=== PATIENT | female | born 1935 | race Caucasian/White ===

== ENCOUNTER 2017-02-24 10:54 | Emergency (ER) | payer OTHER, MEDICARE ==
[~2017-02-24] VITALS: Ht 160 cm; Wt 136.0 kg
[~2017-02-24 10:54] MED LIST: ACTOS30 MG PO; AMARYL4 MG PO; AMLODIPINE BESY10 MG PO; ASPIRIN81 M2 PO; Ascorbic Acid,Ester- PO; Aspirin E.C. PO; CEFDINIR300 MG PO; Colace PO; DEXILANT60 MG PO; FLAGYL500 MG PO; FLONASE16 G1 BOTH NARES; FLOVENT DISKUS1 DIS2 IH; FOLIC ACID1 MG PO; FOLVITE1 M1 PO; Feosol PO; Glucotrol PO; K-Dur PO; LANTUS (UNITS)1 UNIT SC; LANTUS 10100 UNITS/ SC; LANTUS 3 M100 UNITS/ SC; LANTUS 3 M100 UNITS1 SC; LASIX20 MG PO; LIPITOR20 MG PO; LIPITOR40 MG PO; LISINOPRIL5 MG PO; LOPRESSOR25 MG PO; Lasix PO; Lipitor PO; METRONIDAZOLE500 MG PO; MIRALAX17 GM PO; MIRALAX255 GM PO; MITRAZOL POWDER30 GM TP; MONTELUKAST SOD10 MG PO; NORVASC10 MG PO; NOVOLOG PE100 UNITS/ SC; OMEPRAZOLE40 M1 PO; PERCOCET 5/31 TABLET PO; PREDNISONE20 MG PO; PRILOSEC20 MG PO; Protonix PO; SENOKOT S,PE1 TABLET PO; SINGULAIR10 MG PO; Singulair PO; THERAGRAN1 TABLET PO; TYLENOL EXTRA500 MG PO; Tylenol Regular Stre PO; VALIUM5 MG PO; VITAMIN B122500 MCG PO; Vitamin B-12 IM; ZESTORETIC,P1 TABLE1 PO; ZOFRAN ODT4 MG PO; Zestril,Prinivil PO; oxyCODONE PO
[2017-02-24 12:01] LABS: CHLORIDE 102 mEq/L (99-109); SODIUM 138 mEq/L (136-147)
[2017-02-24 12:04] LABS: GLUCOSE 123 mg/dL (70-99)
[2017-02-24 12:05] LABS: ANION GAP 14 MEQ/L (2-14); TOTAL BILIRUBIN 0.5 mg/dL (0.0-1.0)
[2017-02-24 12:07] LABS: ALKALINE PHOSPHATASE 143 IU/L (3-129); GFR ESTIMATE (CALCULATED) 46 mL/min/
[2017-02-24 12:08] LABS: UREA NITROGEN (BUN) 21 mg/dL (9-23)
[2017-02-24 12:09] LABS: DIRECT BILIRUBIN 0.2 mg/dL (0.0-0.3)
[2017-02-24 12:11] LABS: LIPASE 26 U/L (1.0-51.0)
[2017-02-24 12:47] LABS: MCH 29.1 PG (29.0-34.0); MCHC 31.9 G/DL (30.0-36.0); MCV 91.5 FL (83-99); MEAN PLAT.VOLUME 11.1 uM^3 (9.5-12.4); PLATELET COUNT 267 K/uL (156-360); RBC DIS.WIDTH-CV 13.6 % (11.8-14.6); RBC DIS.WIDTH-SD 46.2 % (39-53); WHITE BLOOD COUNT 11.5 K/uL (4.1-10.2)
[2017-02-24 13:24] LABS: ADD MIUA? YES; BILIRUBIN NEGATIVE; BLOOD NEGATIVE; COLOR YELLOW ((YELLOW)); GLUCOSE (STRIP) NEGATIVE; KETONES NEGATIVE; LEUKOCYTES NEGATIVE; NITRITE NEGATIVE; PROTEIN (STRIP) NEGATIVE; SPECIFIC GRAVITY 1.009 (1.000-1.030); UROBILINOGEN 0.2 MG/DL (0.2-1.0)
[2017-02-24 13:31] LABS: BACTERIA RARE /HPF; CALCIUM OXALATE CRYSTALS 1+ /HPF; EPITHELIAL CELLS 1+ /HPF; MUCUS TRACE /LPF; RED BLOOD CELLS 0-5 /HPF (0-5); UCUL ADDED? NO
[2017-02-24] MEDS ORDERED: KEFLEX500 MG PO (15:17)
[2017-02-24 15:30] VITALS: BP 170/68
== END 2017-02-24 15:50 | disposition home or self-care (01) ==
LOC: EME 10:54
PROVIDERS: Emergency Medicine
DX: R10.13 Epigastric pain (principal); R11.2 Nausea with vomiting, unspecified; R30.0 Dysuria; E11.9 Type 2 diabetes mellitus without complications; E78.5 Hyperlipidemia, unspecified; I10 Essential (primary) hypertension; Z87.442 Personal history of urinary calculi; K21.9 Gastro-esophageal reflux disease without esophagitis
CPT/HCPCS: 74177; 80048; 80076; 81003; 83605; 83690; 85027; 99281; 99285; J2405; J7030

== ENCOUNTER 2017-05-21 09:26 | Inpatient (IN) | payer OTHER, MEDICARE ==
[~2017-05-21] VITALS: Ht 161.3 cm; Wt 141.1 kg
[~2017-05-21 09:26] MED LIST changes: +CYANOCOBALAM1000 MCG PO; -DEXILANT60 MG PO; +KEFLEX500 MG PO; -LANTUS 10100 UNITS/ SC; -VITAMIN B122500 MCG PO
[2017-05-21 10:08] LABS: POINT-OF-CARE METER ID UU13113702
[2017-05-21 10:13] LABS: HEMATOCRIT 43.2 % (36.0-46.0); MCH 29.1 PG (29.0-34.0); MCHC 32.2 G/DL (30.0-36.0); MCV 90.6 FL (83-99); MEAN PLAT.VOLUME 11.6 uM^3 (9.5-12.4); PLATELET COUNT 224 K/uL (156-360); RBC DIS.WIDTH-CV 13.9 % (11.8-14.6); RBC DIS.WIDTH-SD 46.5 % (39-53); RED BLOOD COUNT 4.77 M/uL (3.80-5.20); WHITE BLOOD COUNT 7.8 K/uL (4.1-10.2)
[2017-05-21 10:22] LABS: CHLORIDE 101 mEq/L (99-109); POTASSIUM 4.3 mEq/L (3.7-5.4); SODIUM 141 mEq/L (136-147)
[2017-05-21 10:23] LABS: GLUCOSE 99 mg/dL (70-99)
[2017-05-21 10:25] LABS: ANION GAP 11 MEQ/L (2-14)
[2017-05-21 10:27] LABS: GFR ESTIMATE (CALCULATED) 51 mL/min/
[2017-05-21 10:28] LABS: TOTAL BILIRUBIN 0.6 mg/dL (0.0-1.0); UREA NITROGEN (BUN) 22 mg/dL (9-23)
[2017-05-21 10:29] LABS: ALKALINE PHOSPHATASE 154 IU/L (3-129)
[2017-05-21 10:32] LABS: DIRECT BILIRUBIN 0.2 mg/dL (0.0-0.3)
[2017-05-21 10:33] LABS: TROP-I INTERPRETATION NEGATIVE; TROPONIN-I < 0.01 ng/mL (0.0-0.30)
[2017-05-21] MEDS ORDERED: POTASSIUM CHLO20 ME1 PO (12:50)
[2017-05-21] MEDS ORDERED: MULTI VITAMIN1 EACH PO (12:52)
[2017-05-21 13:56] VITALS: BP 152/69
[2017-05-21 13:57] LABS: TROP-I INTERPRETATION NEGATIVE; TROPONIN-I < 0.01 ng/mL (0.0-0.30)
[2017-05-21 19:25] VITALS: BP 133/85
[2017-05-21 20:25] LABS: TROP-I INTERPRETATION NEGATIVE; TROPONIN-I 0.01 ng/mL (0.0-0.30)
[2017-05-22] VITALS (7 sets, daily range): BP systolic 134–169; BP diastolic 60–76
[2017-05-22 06:10] LABS: ALKALINE PHOSPHATASE 136 IU/L (3-129); ANION GAP 8 MEQ/L (2-14); CHLORIDE 104 MEQ/L (99-109); GFR ESTIMATE (CALCULATED) 51 mL/min/; POTASSIUM 4.3 MEQ/L (3.7-5.4); SAMPLE HEMOLYSIS CHECK 0; SAMPLE ICTERIC CHECK 0; SAMPLE LIPEMIA CHECK 0; SODIUM 141 MEQ/L (136-147); TOTAL BILIRUBIN 0.5 MG/DL (0.0-1.0); UREA NITROGEN (BUN) 25 mg/dL (9-23)
[2017-05-22 06:12] LABS: HEMATOCRIT 41.8 % (36.0-46.0); MCH 29.8 PG (29.0-34.0); MCHC 32.8 G/DL (30.0-36.0); MCV 91.1 FL (83-99); MEAN PLAT.VOLUME 12.3 uM^3 (9.5-12.4); PLATELET COUNT 235 K/uL (156-360); RBC DIS.WIDTH-CV 14.2 % (11.8-14.6); RBC DIS.WIDTH-SD 47.1 % (39-53); RED BLOOD COUNT 4.59 M/uL (3.80-5.20); WHITE BLOOD COUNT 8.8 K/uL (4.1-10.2)
[2017-05-22 06:13] LABS: TROP-I INTERPRETATION NEGATIVE; TROPONIN-I 0.02 ng/mL (0.0-0.30)
[2017-05-22 06:18] LABS: GLUCOSE 59 mg/dL (70-99)
[2017-05-22 08:13] LABS: POINT-OF-CARE METER ID UU14162513
[2017-05-22 08:52] LABS: POINT-OF-CARE METER ID UU14162513
[2017-05-22 09:00] LABS: BASE EXCESS 5.3 mEq/L (-3 to +3); BICARBONATE 31.1 mEq/L (22-26); CARBOXY HGB 2.1 % (0-5); METHEMOGLOBIN 1.5 % (0-1.5); PO2 59 mm Hg (80-100); pH 7.41 (7.35-7.45)
[2017-05-22 09:09] LABS: COMMENTS - BLOOD GASES AC+; FI02 21 %; PCO2 49 mm Hg (35-45); SITE RR
[2017-05-22 09:10] LABS: DEVICE RA
[2017-05-22 12:02] LABS: POINT-OF-CARE METER ID UU14162513
[2017-05-23 04:00] VITALS: BP 164/81
[2017-05-23 08:05] LABS: POINT-OF-CARE METER ID UU14174225
[2017-05-23 08:59] VITALS: BP 138/55
[2017-05-23 09:45] LABS: POINT-OF-CARE METER ID UU13113717
[2017-05-23 11:37] LABS: POINT-OF-CARE METER ID UU14174225
[2017-05-23 12:06] VITALS: BP 146/66
[2017-05-23 16:48] LABS: POINT-OF-CARE METER ID UU14174225
[2017-05-23 16:53] VITALS: BP 141/59
[2017-05-23 19:51] VITALS: BP 119/57
[2017-05-23 20:58] LABS: POINT-OF-CARE METER ID UU13113717
[2017-05-23 21:32] LABS: POINT-OF-CARE METER ID UU13113717
[2017-05-24] VITALS (7 sets, daily range): BP systolic 126–153; BP diastolic 58–71
[2017-05-24 07:46] LABS: POINT-OF-CARE METER ID UU14188625
[2017-05-24 09:19] LABS: POINT-OF-CARE METER ID UU14188625
[2017-05-24 12:01] LABS: POINT-OF-CARE METER ID UU14188625
[2017-05-24 21:35] LABS: POINT-OF-CARE METER ID UU14174225
[2017-05-25 05:52] LABS: BASOPHIL COUNT 0.1 K/uL (0-0.1); EOSINOPHIL (%) 5.8 % (0-5); EOSINOPHIL COUNT 0.4 K/uL (0-0.3); HEMATOCRIT 41.4 % (36.0-46.0); IMMATURE GRANULOCYTE (%) 0.3 % (0.0-0.7); INSTRUMENT ABS NEUTROPHIL CT 4.1 K/uL; LYMPHOCYTE COUNT 1.5 K/uL (1.0-2.8); MCH 29.1 PG (29.0-34.0); MCHC 31.6 G/DL (30.0-36.0); MEAN PLAT.VOLUME 11.8 uM^3 (9.5-12.4); MONOCYTE (%) 13.4 % (3-12); NEUTROPHIL (%) 58.2 % (45-76); NEUTROPHIL COUNT 4.1 K/uL (1.8-6.4); PLATELET COUNT 217 K/uL (156-360); RBC DIS.WIDTH-CV 14.3 % (11.8-14.6); RBC DIS.WIDTH-SD 47.8 % (39-53); WHITE BLOOD COUNT 7.1 K/uL (4.1-10.2)
[2017-05-25 06:40] LABS: ANION GAP 8 MEQ/L (2-14); CHLORIDE 100 MEQ/L (99-109); GFR ESTIMATE (CALCULATED) 38 mL/min/; GLUCOSE 114 mg/dL (70-99); POTASSIUM 4.4 MEQ/L (3.7-5.4); SAMPLE HEMOLYSIS CHECK 0; SAMPLE ICTERIC CHECK 0; SAMPLE LIPEMIA CHECK 0; SODIUM 138 MEQ/L (136-147); UREA NITROGEN (BUN) 33 mg/dL (9-23)
[2017-05-25 07:16] LABS: POINT-OF-CARE METER ID UU13113717
[2017-05-25 07:41] VITALS: BP 139/65
[2017-05-25 15:24] VITALS: BP 108/53
[2017-05-25 22:34] VITALS: BP 133/55
[2017-05-25 23:55] VITALS: BP 129/60
[2017-05-26 07:25] VITALS: BP 133/60
[2017-05-26 07:35] VITALS: BP 170/113
[2017-05-26 08:07] LABS: ANION GAP 9 MEQ/L (2-14); CHLORIDE 101 MEQ/L (99-109); GFR ESTIMATE (CALCULATED) 42 mL/min/; GLUCOSE 132 mg/dL (70-99); POTASSIUM 4.7 MEQ/L (3.7-5.4); SAMPLE HEMOLYSIS CHECK 0; SAMPLE ICTERIC CHECK 0; SAMPLE LIPEMIA CHECK 0; SODIUM 139 MEQ/L (136-147); UREA NITROGEN (BUN) 35 mg/dL (9-23)
[2017-05-26] MEDS ORDERED: LANTUS 3 M100 UNITS1 SC (09:22)
[2017-05-26] MEDS ORDERED: ADVAIR HFA120 INHALA IH (09:27)
[2017-05-26 11:07] VITALS: BP 149/64
[2017-05-26 11:24] LABS: POINT-OF-CARE METER ID UU14174225
[2017-05-26 15:10] VITALS: BP 145/65
[2017-05-26 16:56] LABS: POINT-OF-CARE METER ID UU14174225
== END 2017-05-26 18:55 | disposition home health service (06) | DRG 206 ==
LOC: EME 09:26 → EDOF 13:00 → ENRESERV 13:02 → 5WEST 13:41 → 5SOUTH 05-22 12:07 → 5WEST 05-22 12:07 → ENRESERV 05-22 12:19 → 5SOUTH 05-22 15:45
PROVIDERS: Emergency Medicine; Internal Medicine; Internal Medicine Cardiovascular Disease; Internal Medicine Pulmonary Disease; Nurse Practitioner Adult Health; Physician Assistant Medical; Student in an Organized Health Care Education/Training Program
DX: E66.2 Morbid (severe) obesity with alveolar hypoventilation (principal); J20.9 Acute bronchitis, unspecified; R09.02 Hypoxemia; I27.2 Other secondary pulmonary hypertension; B35.4 Tinea corporis; E11.22 Type 2 diabetes mellitus with diabetic chronic kidney disease; I12.9 Hypertensive chronic kidney disease with stage 1 through stage 4 chronic kidney disease, or unspecified chronic kidney disease; N18.3 Chronic kidney disease, stage 3 (moderate); E78.00 Pure hypercholesterolemia, unspecified; E78.5 Hyperlipidemia, unspecified; I45.10 Unspecified right bundle-branch block; J45.909 Unspecified asthma, uncomplicated; K21.9 Gastro-esophageal reflux disease without esophagitis; G89.29 Other chronic pain; M51.36 Other intervertebral disc degeneration, lumbar region; M48.06 Spinal stenosis, lumbar region; Z96.652 Presence of left artificial knee joint; Z79.4 Long term (current) use of insulin; Z95.2 Presence of prosthetic heart valve; Z79.82 Long term (current) use of aspirin; Z68.43 Body mass index [BMI] 50.0-59.9, adult; Z90.49 Acquired absence of other specified parts of digestive tract
CPT/HCPCS: 36600; 71020; 71275; 76705; 78582; 80048; 80053; 80076; 82803; 82948; 84484; 85025; 85027; 85379; 93005; 93306; 94640; 94640 76; 94799; 97530 GP; 99202; 99281; 99285; A9540; A9567; G0378; J0360; J1644; J1650; J1815; J7030

== ENCOUNTER 2017-10-12 20:52 | Emergency (ER) | payer OTHER, MEDICARE ==
[~2017-10-12] VITALS: Ht 157.5 cm; Wt 98.2 kg
[~2017-10-12 20:52] MED LIST changes: +ADVAIR HFA120 INHALA IH; +MULTI VITAMIN1 EACH PO; +POTASSIUM CHLO20 ME1 PO
[2017-10-12 21:55] LABS: HEMATOCRIT 44.3 % (36.0-46.0); MCH 29.9 PG (29.0-34.0); MCV 90.6 FL (83-99); MEAN PLAT.VOLUME 11.8 uM^3 (9.5-12.4); PLATELET COUNT 236 K/uL (156-360); RBC DIS.WIDTH-CV 13.3 % (11.8-14.6); RBC DIS.WIDTH-SD 44.7 % (39-53); RED BLOOD COUNT 4.89 M/uL (3.80-5.20); WHITE BLOOD COUNT 7.2 K/uL (4.1-10.2)
[2017-10-12 22:03] LABS: CHLORIDE 99 mEq/L (99-109); POTASSIUM 4.4 mEq/L (3.7-5.4); SODIUM 136 mEq/L (136-147)
[2017-10-12 22:05] LABS: GLUCOSE 294 mg/dL (70-99)
[2017-10-12 22:06] LABS: ANION GAP 12 MEQ/L (2-14)
[2017-10-12 22:07] LABS: TOTAL BILIRUBIN 0.5 mg/dL (0.0-1.0)
[2017-10-12 22:09] LABS: ALKALINE PHOSPHATASE 139 IU/L (3-129); GFR ESTIMATE (CALCULATED) 42 mL/min/
[2017-10-12 22:10] LABS: UREA NITROGEN (BUN) 30 mg/dL (9-23)
[2017-10-12 23:22] LABS: ADD MIUA? YES; BILIRUBIN NEGATIVE; BLOOD NEGATIVE; COLOR YELLOW ((YELLOW)); GLUCOSE (STRIP) >=500; KETONES NEGATIVE; LEUKOCYTES NEGATIVE; NITRITE NEGATIVE; PROTEIN (STRIP) 100; SPECIFIC GRAVITY 1.042 (1.000-1.030)
[2017-10-12 23:27] LABS: BACTERIA NONE SEEN /HPF; EPITHELIAL CELLS 1+ /HPF; HYALINE CASTS 0-5 /LPF; MUCUS TRACE /LPF; RED BLOOD CELLS 0-5 /HPF (0-5); UCUL ADDED? NO; WHITE BLOOD CELLS 0-5 /HPF (0-5)
[2017-10-13 01:10] VITALS: BP 137/45
== END 2017-10-13 01:11 | disposition home or self-care (01) ==
LOC: EME → EDBD 20:52 → EME 10-13 01:11
DX: R10.31 Right lower quadrant pain (principal); E11.9 Type 2 diabetes mellitus without complications; I10 Essential (primary) hypertension; E78.5 Hyperlipidemia, unspecified; K21.9 Gastro-esophageal reflux disease without esophagitis; I25.10 Atherosclerotic heart disease of native coronary artery without angina pectoris; Z95.2 Presence of prosthetic heart valve; Z87.442 Personal history of urinary calculi; Z79.4 Long term (current) use of insulin; Z88.5 Allergy status to narcotic agent; Z88.8 Allergy status to other drugs, medicaments and biological substances
CPT/HCPCS: 74177; 80053; 81003; 85027; 99281; 99285; J3010; J7030

== ENCOUNTER 2017-10-24 15:32 | Inpatient (IN) | payer OTHER, MEDICARE ==
[~2017-10-24] VITALS: Ht 154.9 cm; Wt 144.3 kg
[~2017-10-24 15:32] MED LIST changes: -ASPIRIN81 M2 PO; -CYANOCOBALAM1000 MCG PO; -MONTELUKAST SOD10 MG PO; -POTASSIUM CHLO20 ME1 PO
[2017-10-24 16:27] LABS: BASOPHIL (%) 0.8 % (0-1); BASOPHIL COUNT 0.1 K/uL (0-0.1); EOSINOPHIL (%) 1.9 % (0-5); EOSINOPHIL COUNT 0.2 K/uL (0-0.3); HEMATOCRIT 44.7 % (36.0-46.0); HEMOGLOBIN 14.3 G/DL (11.9-15.5); IMMATURE GRANULOCYTE (%) 0.3 % (0.0-0.7); LYMPHOCYTE (%) 8.3 % (15-42); LYMPHOCYTE COUNT 0.8 K/uL (1.0-2.8); MCH 29.5 PG (29.0-34.0); MCV 92.2 FL (83-99); MONOCYTE (%) 9.4 % (3-12); MONOCYTE COUNT 0.9 K/uL (0-0.8); NEUTROPHIL (%) 79.3 % (45-76); NEUTROPHIL COUNT 7.5 K/uL (1.8-6.4); PLATELET COUNT 238 K/uL (156-360); RBC DIS.WIDTH-SD 47.7 % (39-53); RED BLOOD COUNT 4.85 M/uL (3.80-5.20); WHITE BLOOD COUNT 9.5 K/uL (4.1-10.2)
[2017-10-24 16:39] LABS: ALBUMIN 3.4 g/dL (3.2-4.8); CHLORIDE 102 mEq/L (99-109); POTASSIUM 4.1 mEq/L (3.7-5.4); SODIUM 140 mEq/L (136-147)
[2017-10-24 16:42] LABS: GLUCOSE 263 mg/dL (70-99)
[2017-10-24 16:44] LABS: TOTAL BILIRUBIN 0.5 mg/dL (0.0-1.0)
[2017-10-24 16:45] LABS: ALKALINE PHOSPHATASE 145 IU/L (3-129); CREATININE 1.2 mg/dL (0.6-1.3); GFR ESTIMATE (CALCULATED) 46 mL/min/
[2017-10-24 16:46] LABS: UREA NITROGEN (BUN) 33 mg/dL (9-23)
[2017-10-24 16:47] LABS: AST (GOT) 9 IU/L (2-34)
[2017-10-24 16:48] LABS: ALT (GPT) 10 IU/L (3-49)
[2017-10-24 16:49] LABS: TROP-I INTERPRETATION NEGATIVE; TROPONIN-I < 0.01 ng/mL (0.0-0.30)
[2017-10-24] MEDS ORDERED: AMLODIPINE BESY10 MG PO (21:06)
[2017-10-24] MEDS ORDERED: FUROSEMIDE20 MG PO (21:06)
[2017-10-24] MEDS ORDERED: ATORVASTATIN CA40 MG PO (21:07)
[2017-10-24] MEDS ORDERED: ASPIRIN81 M2 PO (21:11)
[2017-10-24] MEDS ORDERED: OMEPRAZOLE40 M1 PO (21:12)
[2017-10-24] MEDS ORDERED: NOVOLOG PE100 UNITS/ SC (21:12)
[2017-10-24] MEDS ORDERED: MONTELUKAST SOD10 MG PO (21:12)
[2017-10-24] MEDS ORDERED: POTASSIUM CHLO20 ME1 PO (21:12)
[2017-10-24] MEDS ORDERED: CYANOCOBALAM1000 MCG PO (21:14)
[2017-10-24] MEDS ORDERED: LANTUS 3 M100 UNITS1 SC (21:20)
[2017-10-24] MEDS ORDERED: METOPROLOL SUCC25 MG PO (21:21)
[2017-10-24 21:40] VITALS: BP 188/75
[2017-10-24 23:38] VITALS: BP 172/79
[2017-10-25 05:29] LABS: HEMATOCRIT 43.9 % (36.0-46.0); HEMOGLOBIN 14.2 G/DL (11.9-15.5); MCH 29.9 PG (29.0-34.0); MCHC 32.3 G/DL (30.0-36.0); MCV 92.4 FL (83-99); PLATELET COUNT 190 K/uL (156-360); RBC DIS.WIDTH-CV 13.8 % (11.8-14.6); RBC DIS.WIDTH-SD 46.4 % (39-53); RED BLOOD COUNT 4.75 M/uL (3.80-5.20); WHITE BLOOD COUNT 8.6 K/uL (4.1-10.2)
[2017-10-25 05:58] LABS: CHLORIDE 100 MEQ/L (99-109); CREATININE 1.2 MG/DL (0.6-1.3); GFR ESTIMATE (CALCULATED) 46 mL/min/; GLUCOSE 261 mg/dL (70-99); POTASSIUM 4.4 MEQ/L (3.7-5.4); SODIUM 137 MEQ/L (136-147); UREA NITROGEN (BUN) 31 mg/dL (9-23)
[2017-10-25 07:15] VITALS: BP 177/80
[2017-10-25 09:09] LABS: Estimated Average Glucose 223 mg/dL (70-123); HEMOGLOBIN A1c (GLYCOHEMOGLOB) 9.4 % HGB (Below 5.7)
[2017-10-25 15:15] VITALS: BP 160/81
[2017-10-26 00:43] VITALS: BP 120/78
[2017-10-26 00:45] VITALS: BP 120/78
[2017-10-26 07:30] VITALS: BP 133/68
[2017-10-26 15:00] VITALS: BP 162/74
[2017-10-27 00:06] VITALS: BP 132/59
[2017-10-27 07:48] VITALS: BP 168/70
[2017-10-27] MEDS ORDERED: LISINOPRIL5 MG PO (09:46)
[2017-10-27] MEDS ORDERED: DELTASONE20 M1 PO (09:47)
[2017-10-27] MEDS ORDERED: ZITHROMAX Z-PA250 MG PO (09:49)
== END 2017-10-27 15:47 | disposition home or self-care (01) | DRG 202 ==
LOC: EME 15:32 → EDOF 19:52 → 5EAST 19:52 → ENRESERV 19:58 → 5EAST 21:09 → ENPENDDIS 10-27 → 5EAST 10-27 15:47
PROVIDERS: Emergency Medicine; Hospitalist
DX: J20.9 Acute bronchitis, unspecified (principal); J02.9 Acute pharyngitis, unspecified; R09.02 Hypoxemia; H10.9 Unspecified conjunctivitis; E11.9 Type 2 diabetes mellitus without complications; I11.0 Hypertensive heart disease with heart failure; I50.32 Chronic diastolic (congestive) heart failure; E66.01 Morbid (severe) obesity due to excess calories; Z68.44 Body mass index [BMI] 60.0-69.9, adult; G89.29 Other chronic pain; M51.36 Other intervertebral disc degeneration, lumbar region; M48.061 Spinal stenosis, lumbar region without neurogenic claudication; M19.90 Unspecified osteoarthritis, unspecified site; E78.00 Pure hypercholesterolemia, unspecified; H91.90 Unspecified hearing loss, unspecified ear; J45.909 Unspecified asthma, uncomplicated; K21.9 Gastro-esophageal reflux disease without esophagitis; Z79.4 Long term (current) use of insulin; Z79.82 Long term (current) use of aspirin; Z95.3 Presence of xenogenic heart valve; Z96.652 Presence of left artificial knee joint
CPT/HCPCS: 71250; 80048; 80053; 82948; 83036; 83605; 83880; 84484; 85025; 85027; 87040; 87502; 93005; 94640; 94640 76; 94799; 99202; 99281; 99285; J1650; J1815; J1940; J2930

== ENCOUNTER 2018-04-28 13:32 | Inpatient (IN) | payer OTHER, MEDICARE ==
[~2018-04-28] VITALS: Ht 160 cm; Wt 139.6 kg
[~2018-04-28 13:32] MED LIST changes: +ASPIRIN81 M2 PO; +ATORVASTATIN CA40 MG PO; +CYANOCOBALAM1000 MCG PO; +DELTASONE20 M1 PO; +FUROSEMIDE20 MG PO; +MONTELUKAST SOD10 MG PO; +POTASSIUM CHLO20 ME1 PO; +ZITHROMAX Z-PA250 MG PO
[2018-04-28 14:14] LABS: BASOPHIL (%) 0.8 % (0-1); BASOPHIL COUNT 0.1 K/uL (0-0.1); EOSINOPHIL (%) 1.6 % (0-5); EOSINOPHIL COUNT 0.2 K/uL (0-0.3); HEMATOCRIT 43.5 % (36.0-46.0); HEMOGLOBIN 14.1 G/DL (11.9-15.5); IMMATURE GRANULOCYTE (%) 0.6 % (0.0-0.7); LYMPHOCYTE (%) 9.1 % (15-42); MCH 30.5 PG (29.0-34.0); MCHC 32.4 G/DL (30.0-36.0); MCV 94.2 FL (83-99); MONOCYTE (%) 9.1 % (3-12); NEUTROPHIL (%) 78.8 % (45-76); PLATELET COUNT 284 K/uL (156-360); RBC DIS.WIDTH-CV 14.6 % (11.8-14.6); RBC DIS.WIDTH-SD 50.7 % (39-53); RED BLOOD COUNT 4.62 M/uL (3.80-5.20); WHITE BLOOD COUNT 11.4 K/uL (4.1-10.2)
[2018-04-28 14:26] LABS: APPEARANCE CLEAR ((CLEAR)); BILIRUBIN NEGATIVE; BLOOD NEGATIVE; COLOR AMBER ((YELLOW)); GLUCOSE (STRIP) 50; KETONES NEGATIVE; LEUKOCYTES NEGATIVE; NITRITE NEGATIVE; PROTEIN (STRIP) 100; SPECIFIC GRAVITY 1.025 (1.000-1.030)
[2018-04-28 14:33] LABS: BACTERIA NONE SEEN /HPF; EPITHELIAL CELLS RARE /HPF; MUCUS TRACE /LPF; RED BLOOD CELLS 0-5 /HPF (0-5); WHITE BLOOD CELLS 0-5 /HPF (0-5)
[2018-04-28 14:37] LABS: ALBUMIN 3.5 G/DL (3.2-4.8); CHLORIDE 100 MEQ/L (99-109); POTASSIUM 4.6 MEQ/L (3.7-5.4); SODIUM 142 MEQ/L (136-147); TOTAL BILIRUBIN 0.5 MG/DL (0.0-1.0)
[2018-04-28 14:43] LABS: ALKALINE PHOSPHATASE 159 IU/L (3-129); ALT (GPT) 10 IU/L (3-49); AST (GOT) 13 IU/L (2-34); CREATININE 1.2 MG/DL (0.6-1.3); GFR ESTIMATE (CALCULATED) 46 mL/min/; GLUCOSE 133 mg/dL (70-99); LIPASE 23 U/L (1.0-51.0); TOTAL PROTEIN 6.8 G/DL (6.4-8.3); UREA NITROGEN (BUN) 23 mg/dL (9-23)
[2018-04-28 14:46] LABS: TROP-I INTERPRETATION NEGATIVE; TROPONIN-I 0.01 ng/mL (0.0-0.30)
[2018-04-28 15:41] LABS: pH 7.32 (7.35-7.45)
[2018-04-28 15:42] LABS: BASE EXCESS 4.8 mEq/L (-3 to +3); BICARBONATE 33 mEq/L (22-26); CARBOXY HGB 1.8 % (0-5); COMMENTS - BLOOD GASES C+; DEVICE NRBM; FI02 100 %; O2 FLOW 15 L/MIN; O2 SATURATION (CALCULATED) 98.8 % (95-99); PCO2 64 mm Hg (35-45); PO2 115 mm Hg (80-100); SITE RR; TOTAL RESP RATE 22 resp/min
[2018-04-28] MEDS ORDERED: ZESTRIL5 MG PO (17:34)
[2018-04-28] MEDS ORDERED: OTC CREAM (17:37)
[2018-04-28 20:32] VITALS: BP 136/61
[2018-04-29] VITALS (7 sets, daily range): BP systolic 104–153; BP diastolic 51–65
[2018-04-29 06:34] LABS: HEMOGLOBIN 14.4 G/DL (11.9-15.5); MCH 29.6 PG (29.0-34.0); MCHC 30.6 G/DL (30.0-36.0); MCV 96.7 FL (83-99); PLATELET COUNT 206 K/uL (156-360); RBC DIS.WIDTH-CV 14.5 % (11.8-14.6); RBC DIS.WIDTH-SD 51.7 % (39-53); RED BLOOD COUNT 4.86 M/uL (3.80-5.20); WHITE BLOOD COUNT 8.4 K/uL (4.1-10.2)
[2018-04-29 06:43] LABS: CHLORIDE 100 MEQ/L (99-109); CREATININE 1.3 MG/DL (0.6-1.3); GFR ESTIMATE (CALCULATED) 42 mL/min/; SODIUM 138 MEQ/L (136-147); UREA NITROGEN (BUN) 29 mg/dL (9-23)
[2018-04-29 06:45] LABS: GLUCOSE 298 mg/dL (70-99); POTASSIUM 6.6 MEQ/L (3.7-5.4)
[2018-04-29 15:06] LABS: HEMOGLOBIN A1c (GLYCOHEMOGLOB) 11.1 % (Below 5.7)
[2018-04-30 03:24] VITALS: BP 120/56
[2018-04-30 06:50] VITALS: BP 118/54
[2018-04-30 11:00] VITALS: BP 140/63
[2018-04-30 11:15] LABS: HEMATOCRIT 39.8 % (36.0-46.0); HEMOGLOBIN 12.7 G/DL (11.9-15.5); MCH 29.8 PG (29.0-34.0); MCHC 31.9 G/DL (30.0-36.0); MCV 93.4 FL (83-99); PLATELET COUNT 267 K/uL (156-360); RBC DIS.WIDTH-CV 14.1 % (11.8-14.6); RBC DIS.WIDTH-SD 47.9 % (39-53); RED BLOOD COUNT 4.26 M/uL (3.80-5.20); WHITE BLOOD COUNT 10.9 K/uL (4.1-10.2)
[2018-04-30 11:38] LABS: CHLORIDE 92 MEQ/L (99-109); CREATININE 1.7 MG/DL (0.6-1.3); GFR ESTIMATE (CALCULATED) 31 mL/min/; MAGNESIUM 2.2 mg/dl (1.3-2.7); POTASSIUM 5.5 MEQ/L (3.7-5.4); SODIUM 132 MEQ/L (136-147)
[2018-04-30 11:45] LABS: GLUCOSE 443 mg/dL (70-99)
[2018-04-30 11:47] LABS: UREA NITROGEN (BUN) 48 mg/dL (9-23)
[2018-04-30 15:55] VITALS: BP 128/60
[2018-04-30 21:24] VITALS: BP 119/58
[2018-04-30 23:59] VITALS: BP 126/59
[2018-05-01 05:10] VITALS: BP 118/55
[2018-05-01 06:29] LABS: HEMATOCRIT 38.5 % (36.0-46.0); HEMOGLOBIN 12.4 G/DL (11.9-15.5); MCH 29.7 PG (29.0-34.0); MCHC 32.2 G/DL (30.0-36.0); MCV 92.1 FL (83-99); PLATELET COUNT 234 K/uL (156-360); RBC DIS.WIDTH-CV 14.1 % (11.8-14.6); RBC DIS.WIDTH-SD 47.8 % (39-53); RED BLOOD COUNT 4.18 M/uL (3.80-5.20); WHITE BLOOD COUNT 7.9 K/uL (4.1-10.2)
[2018-05-01 06:45] VITALS: BP 163/67
[2018-05-01 06:50] LABS: CHLORIDE 96 MEQ/L (99-109); CREATININE 1.5 MG/DL (0.6-1.3); GFR ESTIMATE (CALCULATED) 35 mL/min/; GLUCOSE 319 mg/dL (70-99); MAGNESIUM 2.2 mg/dl (1.3-2.7); POTASSIUM 4.5 MEQ/L (3.7-5.4); SODIUM 138 MEQ/L (136-147); UREA NITROGEN (BUN) 52 mg/dL (9-23)
[2018-05-01 11:00] VITALS: BP 140/63
[2018-05-01 15:00] VITALS: BP 110/55
[2018-05-01 19:03] VITALS: BP 137/65
[2018-05-01 23:21] VITALS: BP 161/77
[2018-05-02 03:39] VITALS: BP 160/72
[2018-05-02 06:50] LABS: HEMATOCRIT 39.4 % (36.0-46.0); HEMOGLOBIN 12.7 G/DL (11.9-15.5); MCHC 32.2 G/DL (30.0-36.0); MCV 92.9 FL (83-99); PLATELET COUNT 220 K/uL (156-360); RBC DIS.WIDTH-CV 14.3 % (11.8-14.6); RED BLOOD COUNT 4.24 M/uL (3.80-5.20); WHITE BLOOD COUNT 8.8 K/uL (4.1-10.2)
[2018-05-02 06:53] VITALS: BP 160/69
[2018-05-02 07:14] LABS: CHLORIDE 97 MEQ/L (99-109); CREATININE 1.3 MG/DL (0.6-1.3); GFR ESTIMATE (CALCULATED) 42 mL/min/; GLUCOSE 190 mg/dL (70-99); MAGNESIUM 2.3 mg/dl (1.3-2.7); POTASSIUM 4.2 MEQ/L (3.7-5.4); SODIUM 139 MEQ/L (136-147); UREA NITROGEN (BUN) 48 mg/dL (9-23)
[2018-05-02 14:55] VITALS: BP 135/95
[2018-05-02 19:22] VITALS: BP 127/66
[2018-05-02 22:58] VITALS: BP 156/86
[2018-05-03 06:40] VITALS: BP 184/81
[2018-05-03 10:03] LABS: CHLORIDE 97 MEQ/L (99-109); CREATININE 1.1 MG/DL (0.6-1.3); GFR ESTIMATE (CALCULATED) 51 mL/min/; SODIUM 140 MEQ/L (136-147); UREA NITROGEN (BUN) 41 mg/dL (9-23)
[2018-05-03 10:04] LABS: GLUCOSE 360 mg/dL (70-99)
[2018-05-03 11:11] VITALS: BP 151/67
[2018-05-03 15:00] VITALS: BP 152/75
[2018-05-03 19:07] LABS: GLUCOSE 445 mg/dL (70-99)
[2018-05-03 19:30] VITALS: BP 148/65
[2018-05-03 21:10] VITALS: BP 155/67
[2018-05-04 00:25] VITALS: BP 133/74
[2018-05-04 04:11] VITALS: BP 151/74
[2018-05-04 06:38] VITALS: BP 178/79
[2018-05-04 07:02] LABS: CHLORIDE 97 MEQ/L (99-109); CREATININE 0.9 MG/DL (0.6-1.3); GFR ESTIMATE (CALCULATED) > 59 mL/min/; GLUCOSE 260 mg/dL (70-99); POTASSIUM 5.2 MEQ/L (3.7-5.4); SODIUM 139 MEQ/L (136-147); UREA NITROGEN (BUN) 36 mg/dL (9-23)
[2018-05-04 10:50] VITALS: BP 182/83
[2018-05-04] MEDS ORDERED: DULERA 100 MCG/13 GM IH (14:21)
[2018-05-04] MEDS ORDERED: FUROSEMIDE20 MG PO (14:21)
[2018-05-04] MEDS ORDERED: LEVEMIR100 UNIT/2 SC (14:22)
[2018-05-04] MEDS ORDERED: NOVOLOG 10100 UNITS/ SC (14:22)
[2018-05-04] MEDS ORDERED: PROVENTIL HFA6.7 GM IH (14:33)
[2018-05-04] MEDS ORDERED: APRESOLINE10 MG PO (14:33)
[2018-05-04] MEDS ORDERED: MEDROL DOSEPAK4 MG PO (14:33)
[2018-05-04] MEDS ORDERED: METOPROLOL TA37.5 MG PO (14:33)
[2018-05-04 15:08] VITALS: BP 131/79
== END 2018-05-04 17:44 | disposition home health service (06) | DRG 205 ==
LOC: EME 13:32 → EDOF 17:51 → 5EAST 17:51 → ENRESERV 18:03 → CANRESERV 18:03 → ENRESERV 18:04 → 5EAST 19:53
PROVIDERS: Emergency Medicine; Hospitalist; Internal Medicine; Physician Assistant
PROC: 5A09357 Assistance with Respiratory Ventilation, Less than 24 Consecutive Hours, Continuous Positive Airway Pressure (ICD-10-PCS; principal; 2018-05-01)
DX: E66.2 Morbid (severe) obesity with alveolar hypoventilation (principal); J96.01 Acute respiratory failure with hypoxia; J96.02 Acute respiratory failure with hypercapnia; E87.5 Hyperkalemia; J20.9 Acute bronchitis, unspecified; E87.2 Acidosis; I27.21 Secondary pulmonary arterial hypertension; G89.29 Other chronic pain; M51.36 Other intervertebral disc degeneration, lumbar region; M48.061 Spinal stenosis, lumbar region without neurogenic claudication; E11.9 Type 2 diabetes mellitus without complications; K21.9 Gastro-esophageal reflux disease without esophagitis; I10 Essential (primary) hypertension; E78.5 Hyperlipidemia, unspecified; Z96.652 Presence of left artificial knee joint; Z79.4 Long term (current) use of insulin; Z79.82 Long term (current) use of aspirin; Z90.49 Acquired absence of other specified parts of digestive tract; Z95.3 Presence of xenogenic heart valve; Z91.19 Patient's noncompliance with other medical treatment and regimen; Z68.43 Body mass index [BMI] 50.0-59.9, adult
CPT/HCPCS: 36600; 71045; 71275; 74177; 80048; 80053; 81003; 82803; 82948; 83036; 83605; 83690; 83735; 83880; 84132 91; 84145 90; 84484; 84999; 85025; 85027; 85610; 85730; 87040; 93005; 93306; 94640; 94660; 94760; 94799; 97530 GO; 99281; 99285; J1644; J1815; J2405; J2930; J3010; J7040; J7512

== ENCOUNTER 2018-06-12 20:24 | Inpatient (IN) | payer OTHER, MEDICARE ==
[~2018-06-12] VITALS: Ht 162.6 cm; Wt 141.6 kg
[~2018-06-12 20:24] MED LIST changes: +APRESOLINE10 MG PO; +DULERA 100 MCG/13 GM IH; +LEVEMIR100 UNIT/2 SC; +MEDROL DOSEPAK4 MG PO; +METOPROLOL TA37.5 MG PO; +NOVOLOG 10100 UNITS/ SC; +OTC CREAM; +PROVENTIL HFA6.7 GM IH; +ZESTRIL5 MG PO
[2018-06-12 21:30] LABS: HEMATOCRIT 42.2 % (36.0-46.0); HEMOGLOBIN 13.9 G/DL (11.9-15.5); MCH 30.2 PG (29.0-34.0); MCHC 32.9 G/DL (30.0-36.0); MCV 91.7 FL (83-99); PLATELET COUNT 236 K/uL (156-360); RBC DIS.WIDTH-SD 46.9 % (39-53); WHITE BLOOD COUNT 6.1 K/uL (4.1-10.2)
[2018-06-12 21:39] LABS: CHLORIDE 99 mEq/L (99-109); POTASSIUM 4.8 mEq/L (3.7-5.4); SODIUM 139 mEq/L (136-147)
[2018-06-12 21:41] LABS: GLUCOSE 342 mg/dL (70-99)
[2018-06-12 21:45] LABS: CREATININE 1.3 mg/dL (0.6-1.3); GFR ESTIMATE (CALCULATED) 42 mL/min/; UREA NITROGEN (BUN) 24 mg/dL (9-23)
[2018-06-12] MEDS ORDERED: LOPRESSOR25 MG PO (23:00)
[2018-06-12] MEDS ORDERED: FUROSEMIDE20 MG PO (23:01)
[2018-06-12] MEDS ORDERED: NOVOLOG PE100 UNITS/ SC (23:01)
[2018-06-12] MEDS ORDERED: LEVEMIR FL100 UNIT/1 SC (23:02)
[2018-06-12] MEDS ORDERED: ADVAIR HFA120 INHAL2 IH (23:02)
[2018-06-13 02:09] LABS: APPEARANCE CLEAR ((CLEAR)); BILIRUBIN NEGATIVE; BLOOD NEGATIVE; COLOR STRAW ((YELLOW)); GLUCOSE (STRIP) >=500; KETONES NEGATIVE; LEUKOCYTES NEGATIVE; NITRITE NEGATIVE; PROTEIN (STRIP) NEGATIVE; SPECIFIC GRAVITY 1.005 (1.000-1.030); UCUL ADDED? NO; UROBILINOGEN 0.2 MG/DL (0.2-1.0)
[2018-06-13 02:56] VITALS: BP 129/52
[2018-06-13 07:17] VITALS: BP 148/70
[2018-06-13 07:24] LABS: TROP-I INTERPRETATION NEGATIVE; TROPONIN-I 0.02 ng/mL (0.0-0.30)
[2018-06-13 11:39] VITALS: BP 133/66
[2018-06-13 12:18] LABS: TROP-I INTERPRETATION NEGATIVE; TROPONIN-I < 0.01 ng/mL (0.0-0.30)
[2018-06-13 16:13] VITALS: BP 123/60
[2018-06-13 19:20] VITALS: BP 139/62
[2018-06-13 23:51] VITALS: BP 135/63
[2018-06-14 03:34] VITALS: BP 125/67
[2018-06-14 05:53] LABS: HEMATOCRIT 42.1 % (36.0-46.0); HEMOGLOBIN 13.6 G/DL (11.9-15.5); MCH 29.8 PG (29.0-34.0); MCHC 32.3 G/DL (30.0-36.0); MCV 92.1 FL (83-99); PLATELET COUNT 221 K/uL (156-360); RBC DIS.WIDTH-SD 47.8 % (39-53); RED BLOOD COUNT 4.57 M/uL (3.80-5.20); WHITE BLOOD COUNT 6.9 K/uL (4.1-10.2)
[2018-06-14 06:44] LABS: CHLORIDE 100 MEQ/L (99-109); CREATININE 1.2 MG/DL (0.6-1.3); GFR ESTIMATE (CALCULATED) 46 mL/min/; GLUCOSE 178 mg/dL (70-99); POTASSIUM 4.4 MEQ/L (3.7-5.4); SODIUM 140 MEQ/L (136-147); UREA NITROGEN (BUN) 23 mg/dL (9-23)
[2018-06-14 07:13] VITALS: BP 119/65
[2018-06-14 12:01] VITALS: BP 146/80
[2018-06-14 16:36] VITALS: BP 143/61
[2018-06-14 19:43] VITALS: BP 128/74
[2018-06-15 00:12] VITALS: BP 131/75
[2018-06-15 04:25] VITALS: BP 125/58
[2018-06-15 06:10] LABS: CHLORIDE 100 MEQ/L (99-109); CREATININE 1.2 MG/DL (0.6-1.3); GFR ESTIMATE (CALCULATED) 46 mL/min/; GLUCOSE 148 mg/dL (70-99); POTASSIUM 4.1 MEQ/L (3.7-5.4); SODIUM 142 MEQ/L (136-147); UREA NITROGEN (BUN) 22 mg/dL (9-23)
[2018-06-15 07:44] VITALS: BP 133/61
[2018-06-15] MEDS ORDERED: CEPHALEXIN250 M1 PO (11:00)
[2018-06-15] MEDS ORDERED: LASIX40 MG PO (11:00)
== END 2018-06-15 16:56 | disposition home health service (06) | DRG 292 ==
LOC: EME 20:24 → EDOF 06-13 00:54 → 5SOUTH 06-13 00:54
PROVIDERS: Family Medicine; Hospitalist; Physician Assistant
DX: I11.0 Hypertensive heart disease with heart failure (principal); L03.115 Cellulitis of right lower limb; I50.33 Acute on chronic diastolic (congestive) heart failure; Z68.43 Body mass index [BMI] 50.0-59.9, adult; E66.01 Morbid (severe) obesity due to excess calories; I27.20 Pulmonary hypertension, unspecified; G47.33 Obstructive sleep apnea (adult) (pediatric); E78.5 Hyperlipidemia, unspecified; E11.9 Type 2 diabetes mellitus without complications; M19.90 Unspecified osteoarthritis, unspecified site; Z79.82 Long term (current) use of aspirin; Z95.2 Presence of prosthetic heart valve
CPT/HCPCS: 80048; 81003; 82948; 83880; 84484; 85027; 93005; 93971; 94640; 94799; 99281; 99285; J1644; J1815; J1940